=== PATIENT | male | born 1990 | race Caucasian/White ===

== ENCOUNTER 2020-02-29 08:50 | Emergency (ER) | payer OTHER ==
[2020-02-29] MEDS ORDERED: IBU800 M1 PO (09:49)
[2020-02-29] MEDS ORDERED: NORCO 10-325 T1 EACH PO (09:49)
[2020-02-29 10:07] VITALS: BP 166/99
== END 2020-02-29 09:57 | disposition home or self-care (01) ==
LOC: ED 08:50
DX: S99.922A Unspecified injury of left foot, initial encounter (principal); M79.672 Pain in left foot; W20.8XXA Other cause of strike by thrown, projected or falling object, initial encounter; Y92.59 Other trade areas as the place of occurrence of the external cause

== ENCOUNTER 2024-10-30 02:17 | Emergency (ER) | payer BC ==
[~2024-10-30] VITALS: Ht 190.5 cm; Wt 104.5 kg
[~2024-10-30 02:17] MED LIST: IBU800 M1 PO; NORCO 10-325 T1 EACH PO
[2024-10-30] MEDS ORDERED: ZEPBOUND12.5 MG/0. SQ (02:35)
[2024-10-30] MEDS ORDERED: TESTOSTERO200 MG/1 M IM (02:35)
[2024-10-30 02:56] VITALS: BP 132/78
== END 2024-10-30 02:56 | disposition home or self-care (01) ==
LOC: ED 02:17
DX: K64.5 Perianal venous thrombosis (principal); E66.9 Obesity, unspecified; Z90.49 Acquired absence of other specified parts of digestive tract; Z68.28 Body mass index [BMI] 28.0-28.9, adult